=== PATIENT | male | born 1990 | race African-American/Black ===

== ENCOUNTER 2018-06-28 22:20 | Emergency (ER) | payer BC ==
--- OUTSIDE RECORDS SUMMARY | 2018-06-28 22:23 | XMS REPORT | Clinical Summary ---
:1990 Author Organization [facility] Address [address] [place] [id number] Care Team Providers Name Role Phone Asked, No Pcp Primary Care Provider Unavailable Allergies Active Allergy Reactions Severity Noted Date Comments Phenytoin Sodium Extended Itching 03/21/2018 Medications No known medications Active Problems Not on file Encounters Date Type Specialty Care Team Description 03/21/2018 Emergency Emergency Medicine Sebastián Ling Rib contusion, right, MD Vin initial encounter (Primary Dx) after 06/27/2017 Social History Tobacco Use Types Packs/Day Years Used Date Current Every Day Smoker Smokeless Tobacco: Never Used Alcohol Use Drinks/Week oz/Week Comments Yes ocassionally Sex Assigned at Date Recorded Not on file Job Start Date Occupation Industry Not on file Not on file Not on file Travel History Travel Start Travel End No recent travel history available. Last Filed Vital Signs Vital Sign Reading Time Taken Blood Pressure 112/68 03/21/2018 8:52 AM CDT Pulse 60 03/21/2018 8:52 AM CDT Temperature 35.9 C (96.6 F) 03/21/2018 7:45 AM CDT Respiratory Rate 16 03/21/2018 8:52 AM CDT Oxygen Saturation 99% 03/21/2018 8:52 AM CDT Inhaled Oxygen Concentration - - Weight 61.2 kg (135 lb) 03/21/2018 7:46 AM CDT Height 170.2 cm (5' 7") 03/21/2018 7:46 AM CDT Body Mass Index 21.14 03/21/2018 7:46 AM CDT Plan of Treatment Health Maintenance Due Date Last Done Comments INFLUENZA VACCINE 01/07/2018 Procedures Procedure Name Priority Date/Time Associated Diagnosis Comments XR THORACIC SPINE 2 STAT 03/21/2018 8:24 AM Results for this VW CDT procedure are in the results section. XR CHEST 2 VW STAT 03/21/2018 8:24 AM Results for this CDT procedure are in the results section. after 06/27/2017 Results XR Thoracic Spine 2 Vw (03/21/2018 8:24 AM CDT) Narrative Performed At EXAMINATION:XR THORACIC SPINE 2 VW [facility] CLINICAL HISTORY:fell 20 feet off ladder yesterday T9-T11 midline ttp COMPARISON:None. IMPRESSION: 4 views of thoracic spine were obtained. Thoracic spine alignment is within normal limits. No compression fractures or aggressive bony lesions. No significant degenerative changes. [facility]-[id number] Procedure Note Interface, Radiology Results Incoming - 03/21/2018 8:31 AM CDT EXAMINATION: XR THORACIC SPINE 2 VW CLINICAL HISTORY: fell 20 feet off ladder yesterday T9-T11 midline ttp COMPARISON: None. IMPRESSION: 4 views of thoracic spine were obtained. Thoracic spine alignment is within normal limits. No compression fractures or aggressive bony lesions. No significant degenerative changes. [facility]-[id number] Performing Organization Address [facility] Phone Number [facility] [address] [place] [address] XR Chest 2 Vw (03/21/2018 8:24 AM CDT) Narrative Performed At EXAMINATION: [facility] XR CHEST 2 VW CLINICAL HISTORY: Chest traumablunthigh energyinitial exam COMPARISON: None. FINDINGS: Cardiac and mediastinal silhouettes are within normal limits. There is no vascular congestion, pleural fluid, infiltrate or pneumothorax. Skeletal structures are normal. IMPRESSION: Normal chest. [facility]-[id number] Procedure Note Interface, Radiology Results Incoming - 03/21/2018 8:28 AM CDT EXAMINATION: XR CHEST 2 VW CLINICAL HISTORY: Chest trauma blunt high energy initial exam COMPARISON: None. FINDINGS: Cardiac and mediastinal silhouettes are within normal limits. There is no vascular congestion, pleural fluid, infiltrate or pneumothorax. Skeletal structures are normal. IMPRESSION: Normal chest. [facility]-[id number] Performing Organization Address [facility] Phone Number [facility] [address] [place] [address] after 06/27/2017 Insurance Payer Benefit Plan / Group Subscriber ID Type Phone Address BCBS BCBS CHOICE PPO/FEDERAL EMPL PPO xxxxxxxxxxxx [place] [phone] Advance Directives Patient has advance care planning documents on file. For more information, please contact:Valentin Paz[address] [place] [address]
[2018-06-29] MEDS ORDERED: TETRACAINE HCL 0.5% 2ML OPTH ONE (00:42)
[2018-06-29] MEDS ORDERED: FLUORESCEIN SODIUM 0.6 MG/WRAP ONE (00:42)
--- NOTE | 2018-06-29 01:00 | EDPHYS ---
Physician Documentation [facility] Name: Omari Hutton Age: 27 yrs Sex: Male : 1990 Arrival Date: 06/28/2018 Time: 22:24 Bed 20 Private MD: ED Physician Conor Edmonds HPI: 06/29 00:50 This 27 yrs old Black Male presents to ER via Ambulatory with complaints of Eye jr8 Swelling, Eye Pain. 00:50 Onset: The symptoms/episode began/occurred gradually, 1 day(s) ago. Duration: the jr8 symptoms are continuous. Aggravated by nothing. Alleviated by nothing. Associated signs and symptoms: Pertinent positives: None. Patient does not utilize any form of vision correction. Severity of symptoms: At their worst the symptoms were mild in the emergency department the symptoms are unchanged. The patient has not experienced similar symptoms in the past. The patient has not recently seen a physician. Patient started to feel irritation to both eye yesterday. Left eye worse then right. Unknown if he had anything go into eyes. Denies chemical use. Historical: - Allergies: 06/28 23:17 No Known Allergies; jd3 - Home Meds: 23:17 None [Active]; jd3 - PMHx: 23:17 None; jd3 - PSHx: 23:17 None; jd3 - Immunization history:: Adult Immunizations up to date. - Social history:: Smoking status: Patient uses tobacco products, smokes one-half pack cigarettes per day, smokes one pack cigarettes per day. - Ebola Screening: : Patient negative for fever greater than or equal to 101.5 degrees Fahrenheit, and additional compatible Ebola Virus Disease symptoms. ROS: 06/29 00:50 ENT: Negative for injury, pain, and discharge, Neck: Negative for injury, pain, and jr8 swelling, Cardiovascular: Negative for chest pain, palpitations, and edema, Respiratory: Negative for shortness of breath, cough, wheezing, and pleuritic chest pain, Abdomen/GI: Negative for abdominal pain, nausea, vomiting, diarrhea, and constipation, Back: Negative for injury and pain, MS/Extremity: Negative for injury and deformity, Skin: Negative for injury, rash, and discoloration, Neuro: Negative for headache, weakness, numbness, tingling, and seizure. Eyes: Positive for pain, redness, tearing, of the right eye and left eye. Exam: 00:50 Visual Acuity: Visual acuity is within normal limits. jr8 00:50 Head/Face: Normocephalic, atraumatic. ENT: Nares patent. No nasal discharge, no septal abnormalities noted. Tympanic membranes are normal and external auditory canals are clear. Oropharynx with no redness, swelling, or masses, exudates, or evidence of obstruction, uvula midline. Mucous membranes moist. Neck: Trachea midline, no thyromegaly or masses palpated, and no cervical lymphadenopathy. Supple, full range of motion without nuchal rigidity, or vertebral point tenderness. No Meningismus. Cardiovascular: Regular rate and rhythm with a normal S1 and S2. No gallops, murmurs, or rubs. Normal PMI, no JVD. No pulse deficits. Respiratory: Lungs have equal breath sounds bilaterally, clear to auscultation and percussion. No rales, rhonchi or wheezes noted. No increased work of breathing, no retractions or nasal flaring. Abdomen/GI: Soft, non-tender, with normal bowel sounds. No distension or tympany. No guarding or rebound. No evidence of tenderness throughout. Back: No spinal tenderness. No costovertebral tenderness. Full range of motion. Skin: Warm, dry with normal turgor. Normal color with no rashes, no lesions, and no evidence of cellulitis. MS/ Extremity: Pulses equal, no cyanosis. Neurovascular intact. Full, normal range of motion. Neuro: Awake and alert, GCS 15, oriented to person, place, time, and situation. Cranial nerves II-XII grossly intact. Motor strength 5/5 in all extremities. Sensory grossly intact. Cerebellar exam normal. Normal gait. 00:50 Eyes: Periorbital structures: appear normal, Pupils: equal, round, and reactive to light and accomodation, Extraocular movements: intact throughout, Conjunctiva: chemosis, that is moderate, in left eye, injected, in the left eye, tearing noted, bilaterally, Corneas: are normal, abrasion, is not appreciated, a fluorescein strip employed to appreciate the findings, Sclera: no appreciated abnormality, Anterior chamber: normal, Lids and lashes: appear normal. Vital Signs: 06/28 23:17 BP 103 / 62; Pulse 79; Resp 16 S; Temp 98.6(O); Pulse Ox 97% on R/A; Weight 65.77 kg jd3 (R); Height 5 ft. 7 in. (170.18 cm) (R); Pain 5/10; 06/29 00:58 BP 108 / 56; Pulse 66; Resp 16 S; Pulse Ox 97% on R/A; jd3 06/28 23:17 Body Mass Index 22.71 (65.77 kg, 170.18 cm) j Procedures: 00:50 Eye Exam: Fluorescein. jr8 MDM: 06/28 23:13 Patient medically screened. jr8 06/29 00:50 Data reviewed: vital signs, nurses notes, and as a result, I will discharge patient. jr8 Data interpreted: Pulse oximetry: on room air is 97 %. Interpretation: normal. Counseling: I had a detailed discussion with the patient and/or guardian regarding: the historical points, exam findings, and any diagnostic results supporting the discharge/admit diagnosis, the need for outpatient follow up, an opthalmologist, to return to the emergency department if symptoms worsen or persist or if there are any questions or concerns that arise at home. Administered Medications: 01:00 Drug: Tetracaine Drops 0.5 % 1 drops {Note: administered by Luis Daniel HERNANDEZ..} Route: jd3 Ophthalmic; Site: both eyes; 01:06 Follow up: Response: No adverse reaction jd3 Disposition: 06/29/18 00:59 Discharged to Home. Impression: Conjunctivitis. - Condition is Stable. - Discharge Instructions: Allergic Conjunctivitis, Adult, Chemical Conjunctivitis, Adult, Bacterial Conjunctivitis, Viral Conjunctivitis. - Prescriptions for Gentamicin 0.3 % Ophthalmic Drops - instill 2 drops by OPHTHALMIC route every 4 hours administer to both eyes; 1 bottle. - Medication Reconciliation Form, Thank You Letter, Antibiotic Education, Prescription Opioid Use form. - Follow up: Kaushik Stringer MD; When: 2 - 3 days; Reason: Recheck today's complaints, Continuance of care, Re-evaluation by your physician. - Problem is new. - Symptoms have improved. Addendum: 07/11/2018 07:02 Co-signature as Attending Physician, Conor Edmonds MD Available for consultation at p s1 all times. . Signatures: Luis Daniel Noriega PA PA jr8 Daniel Khan RN RN jd3 Conor Edmonds MD MD ps1 Corrections: (The following items were deleted from the chart) 06/29 01:06 00:59 06/29/2018 00:59 Discharged to Home. Impression: Conjunctivitis. Condition is jd3 Stable. Forms are Medication Reconciliation Form, Thank You Letter, Antibiotic Education, Prescription Opioid Use. Follow up: Kaushik Stringer; When: 2 - 3 days; Reason: Recheck today's complaints, Continuance of care, Re-evaluation by your physician. Problem is new. Symptoms have improved. jr8
--- NOTE | 2018-06-29 01:00 | ER ---
Nurse's Notes [facility] Name: Omari Hutton Age: 27 yrs Sex: Male : 1990 Arrival Date: 06/28/2018 Time: 22:24 Bed 20 [facility] MD: Diagnosis: Conjunctivitis Presentation: 06/28 23:10 Presenting complaint: Patient states: "I am having some discomfort in both my eyes, but jd3 my left eye has been bothering me for a couple of days. I work with the [employer] so I don't know if something got in my eyes or what.". Transition of care: patient was not received from another setting of care. Mechanism of Injury: No Mechanism of Injury. The patient denies any loss of vision. Onset of symptoms was June 28, 2018. Risk Assessment: Do you want to hurt yourself or someone else? Patient reports no desire to harm self or others. Initial Sepsis Screen: Does the patient meet any 2 criteria? No. Patient's initial sepsis screen is negative. Does the patient have a suspected source of infection? No. Patient's initial sepsis screen is negative. Care prior to arrival: None. 23:10 Method Of Arrival: Ambulatory jd3 23:10 Acuity: BRITNI 4 jd3 Historical: - Allergies: 23:17 No Known Allergies; jd3 - Home Meds: 23:17 None [Active]; jd3 - PMHx: 23:17 None; jd3 - PSHx: 23:17 None; jd3 - Immunization history:: Adult Immunizations up to date. - Social history:: Smoking status: Patient uses tobacco products, smokes one-half pack cigarettes per day, smokes one pack cigarettes per day. - Ebola Screening: : Patient negative for fever greater than or equal to 101.5 degrees Fahrenheit, and additional compatible Ebola Virus Disease symptoms. Screenin:19 Abuse screen: Denies threats or abuse. Nutritional screening: No deficits noted. jd3 Tuberculosis screening: No symptoms or risk factors identified. Fall Risk Ambulatory Aid- None/Bed Rest/Nurse Assist (0 pts). Gait- Normal/Bed Rest/Wheelchair (0 pts) Mental Status- Oriented to own ability (0 pts). Total Rojo Fall Scale indicates No Risk (0-24 pts). Assessment: 23:18 General: Appears in no apparent distress. uncomfortable, Behavior is calm, cooperative, jd3 appropriate for age. Pain: Complains of pain in right eye and left eye Quality of pain is described as aching. Neuro: Level of Consciousness is awake, alert, obeys commands, Oriented to person, place, time, situation, Appropriate for age Pupils are PERRLA. Cardiovascular: Capillary refill < 3 seconds Patient's skin is warm and dry. Respiratory: Airway is patent Respiratory effort is even, unlabored, Respiratory pattern is regular, symmetrical. GI: No signs and/or symptoms were reported involving the gastrointestinal system. : No signs and/or symptoms were reported regarding the genitourinary system. EENT: Eyes are tearing on left eye Sclera/Cornea are reddened in right eye and left eye. Derm: Skin is intact, Skin is dry, Skin is normal, Skin temperature is warm. Musculoskeletal: Circulation, motion, and sensation intact. Range of motion: intact in all extremities. 06/29 00:58 Reassessment: Patient appears in no apparent distress at this time. Patient and/or jd3 family updated on plan of care and expected duration. Pain level reassessed. Patient is alert, oriented x 3, equal unlabored respirations, skin warm/dry/pink. Vital Signs: 06/28 23:17 BP 103 / 62; Pulse 79; Resp 16 S; Temp 98.6(O); Pulse Ox 97% on R/A; Weight 65.77 kg jd3 (R); Height 5 ft. 7 in. (170.18 cm) (R); Pain 5/10; 06/29 00:58 BP 108 / 56; Pulse 66; Resp 16 S; Pulse Ox 97% on R/A; jd3 06/28 23:17 Body Mass Index 22.71 (65.77 kg, 170.18 cm) jd3 ED Course: 06/28 22:24 Patient arrived in ED. am2 23:09 Luis Daniel Noriega PA is PHCP. jr8 23:10 Conor Edmonds MD is Attending Physician. jr8 23:10 Daniel Khan RN is Primary Nurse. jd3 23:16 Triage completed. jd3 23:18 Arm band placed on. jd3 23:20 Patient has correct armband on for positive identification. Bed in low position. Call j light in reach. Side rails up X 1. Adult w/ patient. 06/29 00:59 Kaushik Stringer MD is Referral Physician. jr8 01:03 No provider procedures requiring assistance completed. Patient did not have IV access jd3 during this emergency room visit. Administered Medications: 01:00 Drug: Tetracaine Drops 0.5 % 1 drops {Note: administered by Luis Daniel HERNANDEZ..} Route: jd3 Ophthalmic; Site: both eyes; 01:06 Follow up: Response: No adverse reaction jd3 Outcome: 00:59 Discharge ordered by . jr8 01:04 Discharged to home ambulatory. jd3 01:04 Condition: stable 01:04 Discharge instructions given to patient, family, Instructed on discharge instructions, follow up and referral plans. medication usage, Demonstrated understanding of instructions, follow-up care, medications, Prescriptions given X 1. 01:06 Patient left the ED. jd3 Signatures: Luis Daniel Noriega PA PA jr8 Ainsley Fox Daniel Eckert RN RN jd3
== END 2018-06-29 01:06 | disposition home or self-care (01) ==
LOC: ER 22:20
DX: H10.9 Unspecified conjunctivitis (principal); F17.210 Nicotine dependence, cigarettes, uncomplicated

== ENCOUNTER 2019-01-10 13:04 | Emergency (ER) | payer BC ==
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
[2019-01-10] MEDS ORDERED: NA CHLORIDE 0.9% 1,000 ML ONE (13:18)
[2019-01-10 13:26] LABS: Absolute Lymphocytes (CBC) 0.6 K/uL (0.7-4.9); Basophils % 0.4 % (0-1.3); Hematocrit 41.5 % (39.6-49.0); Lymphocytes % 8.8 % (15.3-44.8); MPV 11.7 fL (7.6-11.3); RBC Red Blood Cell Count 4.49 M/uL (4.33-5.43)
[2019-01-10 13:51] LABS: Barbiturates NEGATIVE (NEGATIVE); Benzodiazepines NEGATIVE (NEGATIVE); Cocaine NEGATIVE (NEGATIVE); METHAMPHETAM NEGATIVE (NEGATIVE); Methadone NEGATIVE (NEGATIVE); Opiates NEGATIVE (NEGATIVE); Phencyclidine NEGATIVE (NEGATIVE); THC Cannibis NEGATIVE (NEGATIVE)
[2019-01-10] MEDS ORDERED: levETIRAcetam 1,000 MG in NA CHLORIDE 0.9% 100 ML IV ONE (14:00)
--- NOTE | 2019-01-10 14:16 | RAD REPORT ---
EXAM DESCRIPTION: CT - Head Brain Wo Cont - 01/10/2019 1:55 pm CLINICAL HISTORY: Seizure COMPARISON: None. TECHNIQUE: Axial 5 mm thick images of the head were obtained without IV contrast. All CT scans are performed using dose optimization technique as appropriate and may include automated exposure control or mA/KV adjustment according to patient size. FINDINGS: No intracranial hemorrhage, mass, edema or shift of mid-line structures. No acute infarcti on changes seen. No abnormal extra-axial fluid collections. Ventricles are normal. Physiologic calcif ications are present. Mastoid air cells and visualized portions of the paranasal sinuses are clear. No acute bony findings. IMPRESSION: Negative non-contrast CT head examination.
[2019-01-10 15:06] LABS: Urine Blood NEGATIVE (NEG); Urine Glucose NEGATIVE (NEG); Urine Protein NEGATIVE (NEG); Urine Specific Gravity 1.025 (1.005-1.030)
[2019-01-10 15:15] LABS: BUN Blood Urea Nitrogen 8 mg/dL (7-18); Bicarbonate 27 mmol/L (21-32); Glucose Level 88 mg/dL (74-106); Potassium 3.9 mmol/L (3.5-5.1); Sodium Level 141 mmol/L (136-145)
[2019-01-10 15:24] LABS: Phenytoin (Dilantin) Level < 0.4 ug/mL (10.0-20.0)
[2019-01-10] MEDS ORDERED: NA CHLORIDE 0.9% IV ONE (16:00)
[2019-01-10] MEDS ORDERED: PHENYTOIN IV ONE (16:00)
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
[2019-01-10 17:54] LABS: Blood Morphology Comment NOT SEEN (NOT SEEN); Platelet Estimate DECR; Urine White Blood Cell Casts OK
--- NOTE | 2019-01-11 07:44 | EKG ---
Test Date: 2019-01-10 Test Time: 15:08:01 Federal Appellate Clerk: ALYSON MEASUREMENT RESULTS: Intervals: Rate: 64 OH: 158 QRSD: 86 QT: 376 QTc: 387 Dema: P: -23 OH: 158 QRS: 89 T: 53 INTERPRETIVE STATEMENTS: Normal sinus rhythm RSR' or QR pattern in V1 suggests right ventricular conduction delay Borderline ECG No previous ECG available for comparison Electronically Signed On 01-11-19 07:42:47 CDT by Jose Chung
== END 2019-01-10 16:46 | disposition home or self-care (01) ==
LOC: ER 13:04
DX: G40.909 Epilepsy, unspecified, not intractable, without status epilepticus (principal); Z88.8 Allergy status to other drugs, medicaments and biological substances
CPT/HCPCS: 96365; 96361; 93005; 85025; 80048; 36415; 82962; 80307 ×8; 80185; 81003; 70450; 99284; J1165; J1953; J7030